=== PATIENT | female | born 1990 | race Caucasian/White ===

== ENCOUNTER 2022-04-25 03:20 | Emergency (ER) | payer OTHER ==
[~2022-04-25] VITALS: Ht 157.5 cm; Wt 54.4 kg
[2022-04-25 03:28] VITALS: BP 135/80
--- NOTE | 2022-04-25 03:35 | NUR ---
Patient ambulated to bed 5.
--- NOTE | 2022-04-25 03:51 | NUR ---
Dr. Martínez examining patient.
--- NOTE | 2022-04-25 04:13 | NUR ---
31 y/o f bib self with c/o foreign body with a feeling of fullness. pt was smoking weed and believe she ingested something. pain 12/27. pt requested to talk to dr in private. pt rq xray and blood test. Dr. gamboa assessed pt and awaiting orders
[2022-04-25] MEDS ORDERED: IBUP-2213 PO (04:19)
[2022-04-25] MEDS ORDERED: CIPR500T4 PO (04:19)
[2022-04-25 04:26] VITALS: BP 135/80
--- NOTE | 2022-04-25 04:26 | NUR ---
Patient discharged with v/s stable. Written and verbal after care instructions given and explained. Patient alert, oriented and verbalized understanding of instructions. Ambulatory with steady gait. All questions addressed prior to discharge. ID band removed. Patient advised to follow up with PMD. Rx of cipto and ibuprofen given. Opportunity to ask questions provided and answered.
--- NOTE | 2022-04-25 05:58 | NUR ---
Patient discharged with v/s stable. Written and verbal after care instructions given and explained. Patient alert, oriented and verbalized understanding of instructions. Ambulatory with steady gait. All questions addressed prior to discharge. ID band removed. Patient advised to follow up with PMD. Rx of CIPRO AND IBUPROFEN given. Patient educated on indication of medication including possible reaction and side effects. Opportunity to ask questions provided and answered. A/OX4, VSS, UNLABORED BREATHING, AMBULATORY.
== END 2022-04-25 04:26 | disposition home or self-care (01) ==
LOC: MED 03:20
DX: N39.0 Urinary tract infection, site not specified (principal); F17.200 Nicotine dependence, unspecified, uncomplicated; F12.90 Cannabis use, unspecified, uncomplicated; Z79.899 Other long term (current) drug therapy; Z90.49 Acquired absence of other specified parts of digestive tract
CPT/HCPCS: 81002; 81025; 99283